=== PATIENT | female | born 1955 | race Caucasian/White ===

== ENCOUNTER 2021-12-29 07:22 | Outpatient (REF) | payer BC, SELFPAY ==
[2021-12-29 11:18] LABS: MANUAL DIFF FLAG NO
[2021-12-29 11:27] LABS: Basophils Absolute Auto 0.1 X10*3/uL (0.0-0.2); Basophils Percent Auto 0.9 % (0-2); Eosinophils Absolute Auto 0.4 X10*3/uL (0.0-0.4); Eosinophils Percent Auto 6.4 % (0-4); Hematocrit 44.1 % (37.0-47.0); Hemoglobin 14.7 g/dl (12.0-16.0); Imm Gran Abs Auto 0.01 X10*3/uL (0.00-0.03); Imm Gran Pct Auto 0.2 % (0.0-0.4); Lymphocytes Percent Auto 34.6 % (20-40); Mean Corpuscular HGB Conc 33.3 g/dl (31.0-35.0); Mean Corpuscular Hemoglobin 32.6 pg (27.0-33.0); Mean Corpuscular Volume 97.8 fL (80.0-98.0); Mean Platelet Volume 10.9 fL (9.4-12.3); Monocytes Absolute Auto 0.3 X10*3/uL (0.1-1.2); Monocytes Percent Auto 5.9 % (2-11); Platelet Count 254 X10*3/uL (160-400); Red Blood Count 4.51 X10*6/uL (4.20-5.50); Red Cell Distribution Width 12.7 % (11.0-16.0); White Blood Count 5.8 X10*3/uL (4.8-10.8)
[2021-12-29 11:45] LABS: Alanine Aminotransferase 14 U/L (0-31); Anion Gap 13 (12-20); Aspartate Amino Transferase 25 U/L (5-31); Blood Urea Nitrogen 15 mg/dL (9-16); Calcium 9.4 mg/dL (8.4-10.2); Carbon Dioxide 28 mmol/L (22-29); Chloride 105 mmol/L (96-108); Cholesterol 237 mg/dL; Estimated Glomerular Filt Rate > 60; Glucose Fasting 82 mg/dL (60-99); HDL Cholesterol 75 mg/dL; LDL Cholesterol Calculated 154 mg/dl; Potassium 4.9 mmol/L (3.3-5.1); Sodium 141 mmol/L (135-145); Triglycerides 42 mg/dL
== END 2021-12-29 07:23 | disposition home or self-care (01) ==
LOC: HO.HMGCLDS 07:22
PROVIDERS: Visit Provider Internal Medicine
DX: Z00.01 Encounter for general adult medical examination with abnormal findings (principal); E78.00 Pure hypercholesterolemia, unspecified; K21.9 Gastro-esophageal reflux disease without esophagitis; M85.80 Other specified disorders of bone density and structure, unspecified site; Z78.0 Asymptomatic menopausal state
CPT/HCPCS: 36415; 80048; 80061; 82306; 84450; 84460; 85025

== ENCOUNTER 2023-01-01 09:07 | Outpatient (REF) | payer BC, SELFPAY ==
[2023-01-01 12:29] LABS: Alanine Aminotransferase 11 U/L (0-31); Anion Gap 12 (12-20); Aspartate Amino Transferase 21 U/L (5-31); Blood Urea Nitrogen 11 mg/dL (9-16); Calcium 9.8 mg/dL (8.4-10.2); Carbon Dioxide 27 mmol/L (22-29); Chloride 105 mmol/L (96-108); Cholesterol 250 mg/dL; Estimated Glomerular Filt Rate > 60; Glucose Fasting 82 mg/dL (60-99); HDL Cholesterol 58 mg/dL; LDL Cholesterol Calculated 175 mg/dl; Sodium 140 mmol/L (135-145); Triglycerides 87 mg/dL
== END 2023-01-01 09:08 | disposition home or self-care (01) ==
LOC: HO.HMGCLDS 09:07
PROVIDERS: PCP Internal Medicine; Visit Provider Internal Medicine
DX: Z00.01 Encounter for general adult medical examination with abnormal findings (principal); E78.00 Pure hypercholesterolemia, unspecified; M85.80 Other specified disorders of bone density and structure, unspecified site; Z78.0 Asymptomatic menopausal state
CPT/HCPCS: 36415; 80048; 80061; 84450; 84460

== ENCOUNTER 2023-02-22 09:11 | Outpatient (AMB) | payer BC, SELFPAY ==
--- NOTE | 2023-02-22 09:16 | MHC.PC.OV ---
Vital Signs 02/22/23 09:22 Height 5 ft 2 in Weight 140 lb BMI 25.6 BP 120/70 Blood Pressure Location Rt brachial Position Sitting Pulse 74 Pulse Source Pulse Oximeter Pulse Oximetry (%) 98 Oxygen Delivery Method Room Air Intake Visit Reasons: pain On right upper thigh/hip Intake Note: Pt is here today c/o pain on Rt upper thigh and hip: No falls noted Allergies ibuprofen [From Advil] Allergy (Intermediate, Verified 02/22/23 09:42) Swelling Medication List - Last Reconciled 02/22/23 by Michelle Villalpando MD cholecalciferol (vitamin D3) 125 mcg PO DAILY omega 8-dzh-mkz-other om3-D3 2,200 mg-1,000 unit/5 mL mL PO omeprazole 20 mg PO DAILY valacyclovir 1,000 mg PO BID Tobacco use date assessed: 02/22/23 Fall risk assessment: No Falls in past year Last assessed Fall Risk: 02/22/23 Dental Screening Dental Screen Date: 02/22/23 Did you have a dental visit in the last 12 months?: Yes Did you have a dental problem in the last 6 months where you did not have access to dental care?: No Was dental information given to patient?: Patient has dentist HPI pain On right upper thigh/hip HPI Details 67-year-old lady here today complaining of pain and stiffness in her right hip going down posterior aspect of right thigh, present for the last several days. She has been doing a lot of gardening but has not had any injuries, no fall, no strenuous exertion. She sometimes would get pain on her right leg when lying on her right side when sleeping. Has not been taking anything for this. Denies any accompanying urinary or stool incontinence, no leg weakness numbness or tingling reported. She also has rash on her left ankle present now for at least a week. Patient initially was placing hydrocortisone which did not afford any improvement and now just started applying Neosporin which seems to be helping. Denies any itching over site peer [facility] Medical History (Updated 02/22/23 @ 09:54 by Michelle Villalpando MD) Acute right hip pain Chronic GERD COVID-19 vaccination refused Herpes zoster ophthalmicus Hypercholesterolemia Osteopenia after menopause Surgical History No pertinent past surgical history Family History Father Alzheimer's dementia Coronary artery disease Social History Housing: House Patient Tobacco Use Status: Never used Tobacco e-Cigarette/Vaping Use: Never Used service: No Current occupational status: employed Cognitive needs: No Hearing needs: No Vision needs: Yes Questionnaire Thrive Questionnaire Date Thrive assessed: 12/31/22 DENNIS-7 AMB Questionnaire DENNIS-7 Date DENNIS - 7 assessed: 12/31/22 Source: Developed by Drs. Bala Mosqueda, Lizett Giraldo, Madi Hickman and colleagues, with an educational hiwot from [employer] 2000. Review of Systems Const All systems reviewed & are unremarkable except as noted in HPI and below GI Denies abdominal pain, Denies change in bowel habits, Denies dyspepsia, Denies heartburn and Denies fecal incontinence Denies dysuria, Denies urinary incontinence and Denies vaginal discharge Musc Reports as per HPI Skin/Breast Reports as per HPI Physical exam (Primary Care) Vital Signs: Last Vital Signs Pulse 74 02/22/23 09:22 BP 120/70 02/22/23 09:22 Pulse Ox 98 02/22/23 09:22 Oxygen Delivery Method Room Air 02/22/23 09:22 BMI result Body Mass Index 25.6 Tobacco/Smoking Status: Tobacco use Status Tobacco use date assessed 02/22/23 02/22/23 09:19 Patient Tobacco Use Status Never used Tobacco 02/22/23 09:19 e-Cigarette/Vaping Use Never Used 02/22/23 09:19 Thrive Assessment: Date of Thrive Assessment Date Thrive assessed 12/31/22 02/22/23 09:19 Const Other: Alert oriented x3, no acute distress noted ambulatory no Orientation/consciousness: patient oriented x3 GI Palpation (GI): Soft to palpation, nontender, no guarding and no masses Back/Spine/Pelvis Other: No tenderness elicited on palpation over right hip joint, no gross bone deformity or joint swelling seen full range of motion of right hip joint Skin Other: Erythematous lesion with central clearing and Lacy borders on posterior ankle on left Neuro General: patient oriented x3, gait normal, tone normal, moves all extremities, Normal light touch and pain sensation, no focal motor deficits, CN's II-XI intact bilaterally and normal sensation to monofilament Extrem Right lower extremity: full ROM, no joint enlargement and hip/thigh Details: normal to inspection and normal ROM; no tenderness Assessment and Plan Assessment & Plan (1) Acute right hip pain: Code(s): M25.551 - Pain in right hip Plan: X-ray of right hip joint ordered, advised to try taking Tylenol arthritis 1 tablet twice a day as needed for pain, apply moist heat to affected area for 15 minutes twice a day as needed. Patient wanted referral to Orthopedics, ordered (2) Rash: Code(s): R21 - Rash and other nonspecific skin eruption Plan: Likely tinea corporis. Patient however states that it is improving with Neosporin, continue applying it twice a day for at least 7 days, if no improvement, to let me know Orders: Orders XR hip RT min 2V Today M25.551 - Pain in right hip Referrals Orthopedics Referral M25.551 - Pain in right hip Coding Level of Care Code Est Pt Level 3 (94911) Diagnoses Acute right hip pain M25.551 Rash R21
[2023-02-22 09:22] VITALS: BP 120/70; PULSE 74; O2SAT 98; BMI 25.6
== END 2023-02-22 10:32 | disposition home or self-care (01) ==
PROVIDERS: PCP Internal Medicine; Visit Provider Internal Medicine
DX: M25.551 Pain in right hip (principal); R21 Rash and other nonspecific skin eruption
CPT/HCPCS: 99213

== ENCOUNTER 2023-02-22 10:01 | Outpatient (REF) | payer MEDICARE, SELFPAY ==
--- NOTE | ~2023-02-22 | XR_ITS ---
EXAMINATION: XR HIP, RIGHT CLINICAL INFORMATION: Right hip pain COMPARISON: None available. TECHNIQUE: Two views of the right hip. FINDINGS: Dense oval focus measuring 1.2 cm projects over the right sacrum and it is unclear whether this is a bony versus soft tissue lesion. Dedicated imaging recommended for further evaluation. Mild degenerative changes right hip with joint space narrowing and hypertrophic change. Right hip joint alignment is preserved. XR/XR hip RT min 2V IMPRESSION: 1. Dense 1.2 cm focus projects over the right sacrum and it is unclear whether this is a bony versus soft tissue lesion. Dedicated imaging recommended for further evaluation. 2. Mild degenerative changes right hip. Additional imaging with CT scan or MRI should be considered for better visualization as these modalities are much more sensitive for detection of fracture or other underlying pathology.
== END 2023-02-22 10:02 | disposition home or self-care (01) ==
LOC: HO.HMGCX 10:01
PROVIDERS: PCP Internal Medicine; Visit Provider Internal Medicine
DX: M25.551 Pain in right hip (principal)
CPT/HCPCS: 73502

== ENCOUNTER 2023-03-11 10:45 | Outpatient (AMB) | payer MEDICARE, SELFPAY ==
[2023-03-11 10:55] VITALS: BMI 25.6
--- NOTE | 2023-03-11 10:55 | A.OFFVIS_ITS ---
Intake Vital Signs 03/11/23 10:55 Height 5 ft 2 in Weight 140 lb BMI 25.6 Intake Visit Reasons: [employer]-Right hip pain Intake Note: Farnaz 67 yr old female presents today for for a new patient visit for her right hip pain. States she was referred from her PCP Michelle Villalpando. States she is having right hip pain for the last year or more. 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 She has tried Tylenol and anti-inflammatory medicines which gave her minimal relief. The patient has done physical therapy for 12 weeks over the last 6 months which aggravated her pain. Patient has seen the radiology report from her right hip x-ray taken on 02/22/2023 which shows a ?dense oval focus measuring 1.2 cm p rojects over the right sacrum and it is unclear whether this is a bony versus soft tissue lesion. Dedicated imaging recommended for further evaluation. Allergies ibuprofen [From Advil] Allergy (Intermediate, Verified 03/11/23 10:58) Swelling Medication List - Last Reviewed 03/11/23 by PRISCA Amador cholecalciferol (vitamin D3) 125 mcg PO DAILY omega 9-qri-hmf-other om3-D3 2,200 mg-1,000 unit/5 mL mL PO omeprazole 20 mg PO DAILY valacyclovir 1,000 mg PO BID [facility] Medical History (Updated 03/11/23 @ 11:31 by Rivas Delgado MD) Acute right hip pain Chronic GERD COVID-19 vaccination refused Herpes zoster ophthalmicus Hypercholesterolemia Osteopenia after menopause Surgical History No pertinent past surgical history Family History Father Alzheimer's dementia Coronary artery disease Social History Housing: House Patient Tobacco Use Status: Never used Tobacco e-Cigarette/Vaping Use: Never Used service: No Current occupational status: employed Cognitive needs: No Hearing needs: No Vision needs: Yes Physical Exam Vital Signs: BMI result Body Mass Index 25.6 Const Other: Well-nourished well-developed very friendly female awake alert and oriented x3 in no acute distress Extrem Other: Bilateral lower extremity examination shows good capillary refill, no skin lesions noted, normal sensation light touch Right hip examination shows decreased range of motion when compared to her left hip, pain with range of motion, pain increased with forward flexion and internal rotation, mild tenderness over her bursa, no overlying skin lesions Results Reviewed Results Reviewed: X-ray report from the patient's right hip x-ray taken on 02/22/2023 shows mild degenerative changes as well as the previously mentioned ?dense oval focus? overlying the right sacrum Assessment & Plan Assessment & Plan (1) Right hip pain: Code(s): M25.551 - Pain in right hip Plan: Ms. Colon presents with right hip pain possibly due to an acetabular labral tear or avascular necrosis of her femoral head. Thus, I will send her for an MRI of her right hip for further evaluation. I will also include an MRI of her pelvis to help evaluate the abnormality seen on her plain x-rays. The patient will contact me following her MRI imaging studies to further discuss the findings and treatment options. I did give her a prescription for a Medrol Dosepak to help with her symptoms in the meantime. Feel free to call me at any time should questions regarding her orthopedic management arise. Thank you very much for asking me to see this very friendly patient. I spent 22 minutes in reviewing the patient's records and imaging studies, seeing the patient and documenting in the medical record. Orders: Orders MR hip RT wo con Today S73.199A - Other sprain of unspecified hip, initial encounter MR pelvis wo con Today Q79.9 - Congenital malformation of musculoskeletal system, unspecified Coding Level of Care Code New Pt Level 2 (94321) Diagnoses Right hip pain M25.551
== END 2023-03-11 11:27 | disposition home or self-care (01) ==
PROVIDERS: PCP Internal Medicine; Visit Provider Orthopaedic Surgery
DX: M25.551 Pain in right hip (principal)
CPT/HCPCS: 99202

== ENCOUNTER → 2023-03-11 10:45 | Outpatient (BNVA) | payer MEDICARE, SELFPAY | PROVIDERS: PCP Internal Medicine; Visit Provider Orthopaedic Surgery | DX: M25.551 Pain in right hip (principal) | CPT/HCPCS: 99202 ==

== ENCOUNTER 2023-07-09 09:01 | Outpatient (AMB) | payer MEDICARE, SELFPAY ==
[2023-07-09 09:02] VITALS: BP 120/74; PULSE 74; O2SAT 97; BMI 25.1
--- NOTE | 2023-07-09 09:02 | MHC.PC.OV ---
Vital Signs 07/09/23 09:02 Height 5 ft 2 in Weight 137 lb BMI 25.1 BP 120/74 Blood Pressure Location Rt brachial Position Sitting Pulse 74 Pulse Source Pulse Oximeter Pulse Oximetry (%) 97 Oxygen Delivery Method Room Air Intake Visit Reasons: Hemorrhoids Follow Up Intake Note: Pt is here today for hemorrhiods f/u and c/o cough and is requesting a CXR Allergies ibuprofen [From Advil] Allergy (Intermediate, Verified 07/09/23 10:07) Swelling Medication List - Last Reconciled 07/09/23 by Michelle Villalpando MD cholecalciferol (vitamin D3) 125 mcg PO DAILY famotidine-Ca carb-mag hydrox 10-800-165 mg (Pepcid Complete) 1 tab PO DAILY PRN hydrocortisone 2.5% (Anusol-HC) 1 appl NE BID-QID PRN loteprednol etabonate 0.5% 1 drp ophthalmic (eye) DAILY omega 9-dac-kgc-other om3-D3 2,200 mg-1,000 unit/5 mL mL PO valacyclovir 1,000 mg PO DAILY Tobacco use date assessed: 07/09/23 Fall risk assessment: No Falls in past year Last assessed Fall Risk: 07/09/23 Dental Screening Dental Screen Date: 07/09/23 Did you have a dental visit in the last 12 months?: Yes Did you have a dental problem in the last 6 months where you did not have access to dental care?: No Was dental information given to patient?: Patient has dentist HPI Hemorrhoids Follow Up HPI Details 68-year-old lady here today complaining of intermittent episode of burning pain on defecation, which she thinks is likely due to her hemorrhoids. Has an appointment with Dr. West on 07/21/2023 for preprocedural consult regarding colonoscopy, gets it every 5 years due to positive family history of polyps, but no family history of colon cancer. Hemorrhoids has decreased in size, no further bleeding or itching since she started using a and Anusol HC cream. No episodes of constipation. Complains of recurrent dry cough accompanied by chest congestion, and postnasal drainage, present now for the last several days. Denies any accompanying fever, no shortness of breath reported. Has tested negative for COVID already [facility] Medical History Hemorrhoids, complicated Acute right hip pain COVID-19 vaccination refused Hypercholesterolemia Osteopenia after menopause Chronic GERD Herpes zoster ophthalmicus Surgical History No pertinent past surgical history Family History Father Alzheimer's dementia Coronary artery disease Social History Housing: House Patient Tobacco Use Status: Never used Tobacco e-Cigarette/Vaping Use: Never Used service: No Current occupational status: employed Cognitive needs: No Hearing needs: No Vision needs: Yes Questionnaire Thrive Questionnaire Date Thrive assessed: 12/31/22 DENNIS-7 AMB Questionnaire DENNIS-7 Date DENNIS - 7 assessed: 12/31/22 Source: Developed by Drs. Bala Mosqueda, Lizett Giraldo, Madi Hickman and colleagues, with an educational hwiot from [employer]. Review of Systems Const Reports no additional complaints and Denies headache(s) ENT Denies headache(s), Denies hoarseness and Denies sore throat Card Reports no additional complaints and Denies dyspnea on exertion Resp Denies excessive phlegm production, Denies pain on inspiration, Denies pain with cough and Denies dyspnea on exertion GI Reports no additional complaints Reports no additional complaints Musc Reports no additional complaints Neuro Denies headache(s) Endo Reports no additional complaints Aller/Immun Reports no additional complaints Physical exam (Primary Care) Vital Signs: Last Vital Signs Pulse 74 07/09/23 09:02 BP 120/74 07/09/23 09:02 Pulse Ox 97 07/09/23 09:02 Oxygen Delivery Method Room Air 07/09/23 09:02 BMI result Body Mass Index 25.1 Tobacco/Smoking Status: Tobacco use Status Tobacco use date assessed 07/09/23 07/09/23 09:04 Patient Tobacco Use Status Never used Tobacco 07/09/23 09:03 e-Cigarette/Vaping Use Never Used 07/09/23 09:03 Thrive Assessment: Date of Thrive Assessment Date Thrive assessed 12/31/22 07/09/23 09:03 Const Other: Alert oriented x3, no acute distress noted ambulatory normal gait Orientation/consciousness: patient oriented x3 HENMT Ears: external ears normal, TM's normal bilaterally and EAC's normal General nose exam: Normal external nose present and No nasal discharge present Face and sinus: Yes face symmetric Mouth: Normal oral and palatal mucosa present and moist mucous membranes Neck Neck: Yes full ROM, Yes no lymphadenopathy and Yes supple Resp Auscultation: clear to auscultation bilaterally Cardio Other: S1-S2 present regular rate and rhythm GI Palpation (GI): Soft to palpation, nontender, no guarding and no masses Rectal Exam - Female: visual inspection normal and External hemorrhoid(s) present (Nonthrombosed external hemorrhoid, no active drainage or bleed) Neuro General: patient oriented x3, gait normal, tone normal, moves all extremities and Normal light touch and pain sensation Extrem General: Yes full ROM, Yes no joint enlargement, Yes no clubbing, cyanosis or edema and Yes normal gait Assessment and Plan Assessment & Plan (1) Chronic cough: Code(s): R05.3 - Chronic cough Plan: Chest x-ray ordered, if negative may try taking Zyrtec or cetirizine kllv-wlt-sscrpir 10 mg 1 tablet at bedtime, to control episodes of nasal congestion and postnasal drainage. (2) Chronic GERD: Code(s): K21.9 - Gastro-esophageal reflux disease without esophagitis Plan: Prescription sent for famotidine 40 mg per tablet to take 1 tab once a day an hour before eating , either morning or night, advised to avoid triggers for heartburn such as coffee, chocolates, spicy, greasy foods avoid lying down right away after eating Orders: Orders XR chest 2V 07/09/23 R05.3 - Chronic cough Medications: New famotidine 40 mg PO DAILY 90 tabs 1RF Coding Level of Care Code Est Pt Level 3 (14878) Diagnoses Chronic cough R05.3 Chronic GERD K21.9
== END 2023-07-09 10:51 | disposition home or self-care (01) ==
PROVIDERS: PCP Internal Medicine; Visit Provider Internal Medicine
DX: R05.3 Chronic cough (principal); K21.9 Gastro-esophageal reflux disease without esophagitis
CPT/HCPCS: 99213

== ENCOUNTER 2023-07-09 10:21 | Outpatient (REF) | payer MEDICARE, SELFPAY ==
--- NOTE | ~2023-07-09 | XR_ITS ---
EXAMINATION: XR CHEST CLINICAL INFORMATION: Chronic cough COMPARISON: None available. TECHNIQUE: 2 views of the chest were obtained. FINDINGS: Cardiac and mediastinal silhouette is within normal limits. Lungs are symmetric expanded. There is bronchial wall thickening and peribronchial hazy opacities in the right mid/lower lung. Possible mild changes in the left lower lung retrocardiac region as well. No dense consolidation left lung. No effusion, pulmonary edema. No pneumothorax. XR/XR chest 2V IMPRESSION: Bronchial wall thickening can be seen with a small airway process such as asthma or atypical/viral infections.
== END 2023-07-09 10:22 | disposition home or self-care (01) ==
LOC: HO.HMGCX 10:21
PROVIDERS: PCP Internal Medicine; Visit Provider Internal Medicine
DX: R05.3 Chronic cough (principal)
CPT/HCPCS: 71046

== ENCOUNTER 2024-01-05 10:45 | Outpatient (AMB) | payer BC, SELFPAY ==
--- NOTE | 2024-01-05 11:29 | A.OFFPC_ITS ---
Vital Signs 01/05/24 11:31 Height 5 ft 2 in Weight 140 lb BMI 25.6 BP 136/84 Blood Pressure Location Lt brachial Position Sitting Pulse 59 Pulse Source Pulse Oximeter Pulse Oximetry (%) 98 Oxygen Delivery Method Room Air Intake Visit Reasons: PE Intake Note: Patient here for physical exam. Last mammogram 10/05/23, bone density scan 07/31/21, colonoscopy 11/15/23 Allergies ibuprofen [From Advil] Allergy (Intermediate, Verified 01/05/24 11:47) Swelling Medication List - Last Reconciled 01/05/24 by Michelle Villalpando MD cholecalciferol (vitamin D3) 125 mcg PO DAILY famotidine 40 mg PO DAILY famotidine-Ca carb-mag hydrox 10-800-165 mg (Pepcid Complete) 1 tab PO DAILY PRN hydrocortisone 2.5% (Anusol-HC) 1 appl [place] BID-QID PRN loteprednol etabonate 0.5% 1 drp ophthalmic (eye) DAILY omega 9-jcx-nuj-other om3-D3 2,200 mg-1,000 unit/5 mL mL PO valacyclovir 1,000 mg PO DAILY Tobacco use date assessed: 01/05/24 Fall risk assessment: No Falls in past year Last assessed Fall Risk: 01/05/24 Dental Screening Dental Screen Date: 01/05/24 Did you have a dental visit in the last 12 months?: Yes Did you have a dental problem in the last 6 months where you did not have access to dental care?: No Was dental information given to patient?: Patient has dentist HPI PE HPI Details 68-year-old lady here today for her phys ical exam. She has glaucoma, followed by Dr. Mirza. She is up-to-date with her screening mammogram, last done 10/05/23, her bone density scan was last done 07/31/[address] Renae which showed presence of osteopenia, and is up-to-date with her screen colonoscopy which was done 11/25/[address] West, which showed presence of diverticulosis. 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 [facility] Medical History (Updated 01/05/24 @ 12:05 by Michelle Villalpando MD) Hemorrhoids, complicated Acute right hip pain COVID-19 vaccination refused Hypercholesterolemia Osteopenia after menopause Chronic GERD Herpes zoster ophthalmicus Surgical History No pertinent past surgical history Family History Father Alzheimer's dementia Coronary artery disease Social History Housing: House Patient Tobacco Use Status: Never used Tobacco e-Cigarette/Vaping Use: Never Used service: No Current occupational status: employed Cognitive needs: No Hearing needs: No Vision needs: Yes Female Reproductive History Menstrual Date of Mammogram: 10/05/23 Date of last Bone Density Screenin07/31/21 Questionnaire PHQ-9 Over the last 2 weeks, how often have you been bothered by any of the following problems? 1. Little interest or pleasure in doing things: not at all 2. Feeling down, depressed, or hopeless: not at all 3. Trouble falling or staying asleep, or sleeping too much: not at all 4. Feeling tired or having little energy: not at all 5. Poor appetite or overeating: not at all 6. Feeling bad about yourself - or that you are a failure or have let yourself or your family down: not at all 7. Trouble concentrating on things, such as reading the newspaper or watching television: not at all 8. Moving or speaking so slowly that other people could have noticed. Or the opposite - being so fidgety or restless that you have been moving around a lot more than usual: not at all 9. Thoughts that you would be better off or of hurting yourself in some way: not at all Total score: 0 Depression Screening Interpretation: Negative Depression Screening Done: Yes 77170 - PHQ-9 Billing: Yes Source: Developed by Drs. Bala Mosqueda, Lizett Giraldo, Madi Hickman and colleagues, with an educational hiwot from [employer]. Thrive Questionnaire Date Thrive assessed: 01/05/24 I am a: Patient What is your living situation today?: I have a steady place to live Within the past 12 months, did the food you bought not last and you didn't have the money to get more?: Never true Within the past 12 months, did you worry whether your food would run out before you got money to buy more?: Never true Do you have trouble paying for medicines?: No Do you have trouble getting transportation to medical appointments?: No Do you have trouble paying your heating and electricity bill?: No Do you have trouble taking care of your child, family member or friend?: No Do you have trouble with day-to-day activities such as bathing, preparing meals, shopping, managing finances, etc.?: No Are you currently unemployed and looking for a job?: No Are you interested in more education?: No THRIVE Score: 0 AUDIT C Alcohol Use Questionnaire (AUDIT-C) 1. How often do you have a drink containing alcohol?: Monthly or less 2. How many drinks containing alcohol do you have on a typical day when you are drinking?: 1 or 2 3. How often do you have six or more drinks on one occasion?: Never Total Score: 1 Score Reviewed/Action Taken: No DENNIS-7 AMB Questionnaire DENNIS-7 Date DENNIS - 7 assessed: 01/05/24 Feeling nervous, anxious, or on edge: 0 = Not at all Not being able to stop or control worryin = Not at all Worrying too much about different things: 0 = Not at all Trouble relaxin = Not at all Being so restless that it is hard to sit still: 0 = Not at all Becoming easily annoyed or irritable: 0 = Not at all Feeling afraid as if something awful might happen: 0 = Not at all Total DENNIS-7 score (0-4 normal; 5-9 mild; 10-14 moderate; 15-21 severe): 0 Source: Developed by Drs. Bala Mosqueda, Lizett Giraldo, Madi Hickman and colleagues, with an educational hiwot from [employer]. DENNIS-7 Assessment Billing DENNIS-7 Assessment Tool: DENNIS-7 Assessment 58907 Review of Systems Const Reports no additional complaints Eyes Details: ff'd by Dr Mirza Reports no additional complaints ENT Denies hoarseness and Denies sore throat Card Denies chest pain, Denies edema, Denies irregular heart rhythm, Denies lightheadedness and Denies dyspnea on exertion Resp Denies cough and Denies dyspnea on exertion GI Reports no additional complaints Reports no additional complaints Musc Reports no additional complaints Skin/Breast Denies breast swelling, Denies breast pain, Denies breast mass and Denies rash Neuro Reports no additional complaints Psych Reports no additional complaints Endo Reports no additional complaints Jak/Lymph Reports no additional complaints Aller/Immun Reports no additional complaints Physical exam (Primary Care) Vital Signs: Last Vital Signs Pulse 59 01/05/24 11:31 BP 136/84 01/05/24 11:31 Pulse Ox 98 01/05/24 11:31 Oxygen Delivery Method Room Air 01/05/24 11:31 BMI result Body Mass Index 25.6 Tobacco/Smoking Status: Tobacco use Status Tobacco use date assessed 01/05/24 01/05/24 11:34 Patient Tobacco Use Status Never used Tobacco 01/05/24 11:31 e-Cigarette/Vaping Use Never Used 01/05/24 11:31 Depression Screening Interpretation: Negative Thrive Assessment: Date of Thrive Assessment Date Thrive assessed 12/31/22 01/05/24 11:31 Const Other: Alert oriented x3, no acute distress noted ambulatory normal gait Orientation/consciousness: patient oriented x3 HENMT Ears: external ears normal, TM's normal bilaterally and EAC's normal General nose exam: Normal external nose present and No nasal discharge present Face and sinus: Yes face symmetric Mouth: Normal oral and palatal mucosa present and moist mucous membranes Neck Neck: Yes full ROM, Yes no lymphadenopathy and Yes supple Chest Breast/axilla palpation: normal palpation of the breasts Resp Auscultation: clear to auscultation bilaterally Cardio Other: S1-S2 present regular rate and rhythm GI Palpation (GI): Soft to palpation, nontender, no guarding and no masses General: Yes no CVA tenderness Back/Spine/Pelvis Back: no CVA tenderness and No back tenderness Skin General skin exam: no rashes or lesions noted Neuro General: patient oriented x3, gait normal, tone normal, moves all extremities and Normal light touch and pain sensation Extrem General: Yes full ROM, Yes no joint enlargement, Yes no clubbing, cyanosis or edema and Yes normal gait Psych Appearance: grossly normal and well kempt Mental Status: mental status grossly normal Speech and movement: Normal speech and movement present Affect: normal affect Thought process: Normal thought process present Assessment and Plan Assessment & Plan (1) Annual visit for general adult medical examination with abnormal findings: Code(s): Z00.01 - Encounter for general adult medical examination with abnormal findings Plan: Will check appropriate labs. Continue regular dental visit every 6 months and currently followed by Dr Mirza for her regular eye exam Take adequate calcium in diet and vitamin-D 3 at 2000 IU per cap once a day, in addition to weight- bearing exercises to help maintain good muscle tone and weight control. Instructed to do self-breast exam, and continue with yearly mammogram. Advised that she is due for her repeat bone density scan. Up-to-date with her screening colonoscopy done earlier this year by Dr. West, repeat due again in 2028 due to positive family history for colon cancer. Received COVID vaccines in the past does not want to get booster nor does she want to get any flu shot, up-to-date with her shingles vaccination, had Prevnar 13 in the past but does not want to get Prevnar 20 vaccination at present time. Up-to-date with her tetanus diphtheria booster (2) Hypercholesterolemia: Code(s): E78.00 - Pure hypercholesterolemia, unspecified Plan: Fasting lipid panel ordered, reinforced importance of following low-cholesterol diet, getting regular exercise at least 30 minutes of cardio exercise 3 to 4 times a week. (3) Osteopenia after menopause: Code(s): M85.80 - Other specified disorders of bone density and structure, unspecified site; Z78.0 - Asymptomatic menopausal state Plan: Encouraged to do regular weight-bearing exercise, continue taking adequate calcium from dietary sources and continue with vitamin-D [address]. [address] Renae orders her bone density scan, due for recheck. (4) Chronic GERD: Code(s): K21.9 - Gastro-esophageal reflux disease without esophagitis Plan: Takes famotidin 40 mg daily, avoidance of heartburn triggers important (5) Advanced directives, counseling/discussion: Code(s): Z71.89 - Other specified counseling Plan: Initiated the conversation about Advanced Directives. Advanced Directives help patients prepare for current and future decisions about their medical treatment and place of care. Discussed with patient that it is a process where a patients current condition and prognosis are reviewed, their wishes for information regarding their illness are elicited, and likely medical dilemmas are presented and options discussed. MOLST form already completed 2 years ago, healthcare proxy done today. These forms can be amended as needed, reviewed yearly and make changes as needed Orders: Orders Alanine Aminotransferase 01/10/24 M85.80 - Other specified disorders of bone density and structure, unspecified site, Z78.0 - Asymptomatic menopausal state, E78.00 - Pure hypercholesterolemia, unspecified, Z13.1 - Encounter for screening for diabetes mellitus Glucose Fasting 01/10/24 M85.80 - Other specified disorders of bone density and structure, unspecified site, Z78.0 - Asymptomatic menopausal state, E78.00 - Pure hypercholesterolemia, unspecified, Z13.1 - Encounter for screening for diabetes mellitus Lipid Panel 01/10/24 M85.80 - Other specified disorders of bone density and st ructure, unspecified site, Z78.0 - Asymptomatic menopausal state, E78.00 - Pure hypercholesterolemia, unspecified, Z13.1 - Encounter for screening for diabetes mellitus Aspartate Amino Transferase 01/10/24 M85.80 - Other specified disorders of bone density and structure, unspecified site, Z78.0 - Asymptomatic menopausal state, E78.00 - Pure hypercholesterolemia, unspecified, Z13.1 - Encounter for screening for diabetes mellitus Vitamin D 25-OH Total 01/10/24 M85.80 - Other specified disorders of bone density and structure, unspecified site, Z78.0 - Asymptomatic menopausal state, E78.00 - Pure hypercholesterolemia, unspecified, Z13.1 - Encounter for screening for diabetes mellitus Review Patient declined Pneumococcal Vaccine: 01/05/24 Coding Level of Care Code Est Pt Prev Care >65y(63955) Diagnoses Annual visit for general adult medical examination with abnormal findings Z00.01 Hypercholesterolemia E78.00 Osteopenia after menopause M85.80; Z78.0 Chronic GERD K21.9 Advanced directives, counseling/discussion Z71.89 Additional Codes DENNIS-7 Assessment Billing - DENNIS-7 Assessment Tool: DENNIS-7 Assessment 36214 ([id number])
[2024-01-05 11:31] VITALS: BP 136/84; PULSE 59; O2SAT 98; BMI 25.6
== END 2024-01-05 12:18 | disposition home or self-care (01) ==
PROVIDERS: PCP Internal Medicine; Visit Provider Internal Medicine
DX: Z00.00 Encounter for general adult medical examination without abnormal findings (principal); E78.00 Pure hypercholesterolemia, unspecified; M85.80 Other specified disorders of bone density and structure, unspecified site; Z78.0 Asymptomatic menopausal state; K21.9 Gastro-esophageal reflux disease without esophagitis
CPT/HCPCS: 99397

== ENCOUNTER 2024-01-10 07:55 | Outpatient (REF) | payer MEDICARE, SELFPAY ==
[2024-01-10 12:41] LABS: Alanine Aminotransferase 13 U/L (0-31); Aspartate Amino Transferase 24 U/L (5-31); Cholesterol 226 mg/dL (<200); Glucose Fasting 80 mg/dL (60-99); HDL Cholesterol 76 mg/dL (>40); LDL Cholesterol Calculated 138 mg/dL (<100); Triglycerides 62 mg/dL (<150)
[2024-01-10 12:47] LABS: Vitamin D 25-OH Total 50.8 ng/mL (>30)
== END 2024-01-10 07:56 | disposition home or self-care (01) ==
LOC: HO.HMGCLDS 07:55
PROVIDERS: PCP Internal Medicine; Visit Provider Internal Medicine
DX: M85.80 Other specified disorders of bone density and structure, unspecified site (principal); Z78.0 Asymptomatic menopausal state; E78.00 Pure hypercholesterolemia, unspecified; Z13.1 Encounter for screening for diabetes mellitus
CPT/HCPCS: 36415; 80061; 82306; 82947; 84450; 84460

== ENCOUNTER 2025-02-12 10:42 | Outpatient (AMB) | payer MEDICARE, SELFPAY ==
--- NOTE | 2025-02-12 10:57 | A.OFFPC_ITS ---
Vital Signs 02/12/25 11:17 Height 5 ft 2 in Weight 129 lb BMI 23.6 BP 114/70 Blood Pressure Location Rt brachial Position Sitting Respiration 15 Pulse 58 Pulse Source Pulse Oximeter Temp 98.2 F Pulse Oximetry (%) 98 Oxygen Delivery Method Room Air Intake Visit Reasons: PE Intake Note: Pt is here today for her PE: Last mammogram 11/16/24, bone density scan 07/31/21, colonoscopy 11/25/23 Allergies ibuprofen (From Advil) Allergy (Intermediate, Verified 02/18/25 13:47) Swelling Medication List - Last Reconciled 02/12/25 by Michelle Villalpando MD cholecalciferol (vitamin D3) 125 mcg PO DAILY famotidine-Ca carb-mag hydrox 10-800-165 mg (Pepcid Complete) 1 tab PO DAILY PRN loteprednol etabonate 0.5% 1 drp ophthalmic (eye) DAILY omega 1-syz-ubh-other om3-D3 2,200 mg-1,000 unit/5 mL mL PO valacyclovir 1,000 mg PO DAILY Tobacco use date assessed: 02/12/25 Fall risk assessment: No Falls in past year Last assessed Fall Risk: 02/12/25 Dental Screening Dental Screen Date: 02/12/25 Did you have a dental visit in the last 12 months?: Yes Did you have a dental problem in the last 6 months where you did not have access to dental care?: Yes Was dental information given to patient?: Patient has dentist HPI PE HPI Details - The patient is a 69-year-old female pr esenting for a routine physical examination and management of chronic conditions. - has hyperlipidemia with elevated LDL c holesterol on last check, currently not on stat or following any diet - Hypertension: Blood pressure has impro robert from 136/84 mmHg to 114/70 mmHg, attributed to weight loss. - Osteopenia: Bone thinning noted in one hip, with no fractures reported. 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 No external skin lesions noted, but exp erienced blurry vision initially. - Allergic reaction to Ibuprofen: Patien t experienced lip swelling years ago and avoids ibuprofen, using Tylenol for pain management instead. - Cataracts: Developing cataracts noted in one eye, not yet requiring surgical intervention. - Heartburn: Managed with Famotidine as needed, depending on dietary intake. - Preventative care: Pneumonia vaccinati on discussed, with patient having received the Prevnar 13. Mammogram and bone density screenings are scheduled for after November 16. -had her screening colonoscopy done in with Dr. West which showed prese nce of diverticulosis and internal hemorrhoids, nonbleeding, but due to positive family history in first-degree relative with colon cancer, repeat colonoscopy due again in 2028. She also had an upper endoscopy done at the same time which showed presence of a large hiatal hernia and GERD [facility] Medical History (Updated 02/18/25 @ 13:52 by Michelle Villalpando MD) Large hiatal hernia Hemorrhoids, complicated Acute right hip pain COVID-19 vaccination refused Hypercholesterolemia Osteopenia after menopause Chronic GERD Herpes zoster ophthalmicus Surgical History No pertinent past surgical history Family History Father Alzheimer's dementia Coronary artery disease Social History Housing: House Patient Tobacco Use Status: Never used Tobacco e-Cigarette/Vaping Use: Never Used service: No Current occupational status: employed Cognitive needs: No Hearing needs: No Vision needs: Yes Questionnaire PHQ-9 Over the last 2 weeks, how often have you been bothered by any of the following problems? 1. Little interest or pleasure in doing things: not at all 2. Feeling down, depressed, or hopeless: not at all 3. Trouble falling or staying asleep, or sleeping too much: not at all 4. Feeling tired or having little energy: not at all 5. Poor appetite or overeating: not at all 6. Feeling bad about yourself - or that you are a failure or have let yourself or your family down: not at all 7. Trouble concentrating on things, such as reading the newspaper or watching television: not at all 8. Moving or speaking so slowly that other people could have noticed. Or the opposite - being so fidgety or restless that you have been moving around a lot more than usual: not at all 9. Thoughts that you would be better off or of hurting yourself in some way: not at all Total score: 0 Depression Screening Interpretation: Negative Depression Screening Done: Yes 36428 - PHQ-9 Billing: Yes Source: Developed by Drs. Bala Mosqueda, Lizett Giraldo, Madi Hickman and colleagues, with an educational hiwot from [employer]. Thrive Questionnaire Date Thrive assessed: 02/07/25 I am a: Patient What is your living situation today?: I have a steady place to live Within the past 12 months, did the food you bought not last and you didn't have the money to get more?: Never true Within the past 12 months, did you worry whether your food would run out before you got money to buy more?: Never true Do you have trouble paying for medicines?: No Do you have trouble getting transportation to medical appointments?: No Do you have trouble paying your heating and electricity bill?: No Do you have trouble taking care of your child, family member or friend?: No Do you have trouble with day-to-day activities such as bathing, preparing meals, shopping, managing finances, etc.?: No Are you currently unemployed and looking for a job?: No Are you interested in more education?: No Please select the resources that you would like help with: None Currently or been in a relationship where the following occur: No concerns reported THRIVE Score: 0 AUDIT C Alcohol Use Questionnaire (AUDIT-C) 1. How often do you have a drink containing alcohol?: 2-3 times a week 2. How many drinks containing alcohol do you have on a typical day when you are drinking?: 1 or 2 3. How often do you have six or more drinks on one occasion?: Never Total Score: 3 DENNIS-7 AMB Questionnaire DENNIS-7 Date DENNIS - 7 assessed: 12/31/22 Feeling nervous, anxious, or on edge: 0 = Not at all Not being able to stop or control worryin = Not at all Worrying too much about different things: 0 = Not at all Trouble relaxin = Not at all Being so restless that it is hard to sit still: 0 = Not at all Becoming easily annoyed or irritable: 0 = Not at all Feeling afraid as if something awful might happen: 0 = Not at all Total DENNIS-7 score (0-4 normal; 5-9 mild; 10-14 moderate; 15-21 severe): 0 Source: Developed by Drs. Bala Mosqueda, Lizett Giraldo, Madi Hickman and colleagues, with an educational hiwot from [employer]. Review of Systems Const Reports no additional complaints Eyes Details: sees Dr Mirza Reports no additional complaints ENT Reports no additional complaints Card Denies chest pain, Denies edema, Denies irregular heart rhythm, Denies lightheadedness and Denies dyspnea on exertion Resp Denies cough and Denies dyspnea on exertion GI Reports no additional complaints Reports no additional complaints Musc Reports no additional complaints Skin/Breast Denies breast swelling, Denies breast pain, Denies breast mass and Denies rash Neuro Reports no additional complaints Psych Reports no additional complaints Endo Reports no additional complaints Jak/Lymph Reports no additional complaints Aller/Immun Reports no additional complaints Physical exam (Primary Care) Vital Signs: Last Vital Signs Temp 98.2 F 02/12/25 11:17 Pulse 58 02/12/25 11:17 Resp 15 02/12/25 11:17 BP 114/70 02/12/25 11:17 Pulse Ox 98 02/12/25 11:17 Oxygen Delivery Method Room Air 02/12/25 11:17 BMI result Body Mass Index 23.6 Tobacco/Smoking Status: Tobacco use Status Tobacco use date assessed 02/12/25 02/12/25 11:18 Patient Tobacco Use Status Never used Tobacco 02/12/25 10:58 e-Cigarette/Vaping Use Never Used 02/12/25 10:58 PHQ-9: PHQ-9 Score PHQ-9: Total score 0 02/18/25 13:55 Depression Screening Interpretation: Negative Thrive Assessment: Date of Thrive Assessment Date Thrive assessed 02/07/25 02/12/25 10:58 Currently or been in a relationship where the following occur: No concerns reported Const Other: Alert oriented x3, no acute distress noted ambulatory normal gait Orientation/consciousness: patient oriented x3 HENMT Ears: external ears normal, TM's normal bilaterally and EAC's normal General nose exam: Normal external nose present and No nasal discharge present Face and sinus: Yes face symmetric Mouth: Normal oral and palatal mucosa present and moist mucous membranes Eyes General: appearance normal, both eyes and all related structures Neck Neck: Yes full ROM, Yes no lymphadenopathy and Yes supple Chest Breast/axilla palpation: normal palpation of the breasts Resp Auscultation: clear to auscultation bilaterally Cardio Other: S1-S2 present regular rate and rhythm GI Palpation (GI): Soft to palpation, nontender, no guarding and no masses General: Yes no CVA tenderness Back/Spine/Pelvis Back: no CVA tenderness and No back tenderness Skin General skin exam: no rashes or lesions noted Neuro General: patient oriented x3, gait normal, tone normal, moves all extremities and Normal light touch and pain sensation Extrem General: Yes full ROM, Yes no joint enlargement and Yes normal gait Psych Appearance: grossly normal and well kempt Mental Status: mental status grossly normal Speech and movement: Normal speech and movement present Affect: normal affect Coding Level of Care Code Est Pt Prev Care >65y(49316) Diagnoses Annual visit for general adult medical examination with abnormal findings Z00.01 Osteopenia after menopause M85.80; Z78.0 Chronic GERD K21.9 Large hiatal hernia K44.9 Hypercholesterolemia E78.00 Additional Codes PHQ-9 - 13687 - PHQ-9 Billing: Yes ([id number]) Assessment & Plan Assessment & Plan (1) Annual visit for general adult medical examination with abnormal findings: Code(s): Z00.01 - Encounter for general adult medical examination with abnormal findings (2) Osteopenia after menopause: Code(s): M85.80 - Other specified disorders of bone density and structure, unspecified site; Z78.0 - Asymptomatic menopausal state Category: Medical (3) Chronic GERD: Code(s): K21.9 - Gastro-esophageal reflux disease without esophagitis Category: Medical (4) Large hiatal hernia: Comment: seen on upper endoscopy Code(s): K44.9 - Diaphragmatic hernia without obstruction or gangrene Category: Medical (5) Hypercholesterolemia: Code(s): E78.00 - Pure hypercholesterolemia, unspecified Category: Medical Plan Repeat fasting lipid panel, basic metabolic panel ordered. Reinforced importance of following a low-cholesterol diet and getting regular exercise at least 15 minutes of moderate intensity exercise daily or 150 minutes per week Her blood pressure is currently well-controlled, with recent weight loss, and will continue to be monitored. Has osteopenia, bone density screenings are scheduled, and she is advised to maintain her current weight to reduce stress on her joints. history of Herpes Zoster Ophthalmicus, on Valacyclovir, and she should continue this regimen. She should avoid ibuprofen due to her previous allergic reaction and continue using Tylenol for pain management. Cataracts in one eye are being monitored, with no immediate need for surgical intervention. Heartburn is managed with Famotidine as needed Preventative care measures include updating her pneumonia vaccination and scheduling mammogram and bone density screenings after November 16, 2025. She is encouraged to continue her current exercise routine, which has contributed to her weight loss and overall health improvement. screening colonoscopy done in [address] West which showed presence of diverticulosis and internal hemorrhoids, nonbleeding, but due to positive family history in first-degree relative with colon cancer, repeat colonoscopy due again in 2028 Patient was informed and verbally consented to the use of an ambient scribe for clinic note documentation during this visit. Orders: Orders MM tomosynthesis screening BI 11/19/25 M85.80 - Other specified disorders of bone density and structure, unspecified site, Z12.31 - Encounter for screening mammogram for malignant neoplasm of breast, Z78.0 - Asymptomatic menopausal state XR DEXA axial skeleton 11/19/25 M85.80 - Other specified disorders of bone density and structure, unspecified site, Z12.31 - Encounter for screening mammogram for malignant neoplasm of breast, Z78.0 - Asymptomatic menopausal state
[2025-02-12 11:17] VITALS: BP 114/70; PULSE 58; RESP 15; TEMP 36.8; O2SAT 98; BMI 23.6
== END 2025-02-12 12:12 | disposition home or self-care (01) ==
LOC: HO.HMCC 10:43
PROVIDERS: PCP Internal Medicine; Visit Provider Internal Medicine
DX: Z00.01 Encounter for general adult medical examination with abnormal findings (principal); M85.80 Other specified disorders of bone density and structure, unspecified site; Z78.0 Asymptomatic menopausal state; K21.9 Gastro-esophageal reflux disease without esophagitis; K44.9 Diaphragmatic hernia without obstruction or gangrene; E78.00 Pure hypercholesterolemia, unspecified

== ENCOUNTER → 2025-02-12 10:42 | Outpatient (BNVA) | payer MEDICARE, SELFPAY | PROVIDERS: PCP Internal Medicine; Visit Provider Internal Medicine | DX: Z00.01 Encounter for general adult medical examination with abnormal findings (principal); M85.80 Other specified disorders of bone density and structure, unspecified site; K21.9 Gastro-esophageal reflux disease without esophagitis; K44.9 Diaphragmatic hernia without obstruction or gangrene; E78.00 Pure hypercholesterolemia, unspecified; Z78.0 Asymptomatic menopausal state; Z13.31 Encounter for screening for depression | CPT/HCPCS: 96127; 99397 ==

== ENCOUNTER 2025-02-17 07:25 | Outpatient (REF) | payer MEDICARE, SELFPAY ==
[2025-02-17 12:07] LABS: Hematocrit 42.0 % (37.0-47.0); Hemoglobin 14.1 g/dl (12.0-16.0)
[2025-02-17 12:46] LABS: Alanine Aminotransferase 16 U/L (0-31); Anion Gap 12 (12-20); Aspartate Amino Transferase 32 U/L (5-31); Blood Urea Nitrogen 13 mg/dL (9-16); Calcium 9.4 mg/dL (8.4-10.2); Carbon Dioxide 28 mmol/L (22-29); Chloride 106 mmol/L (96-108); Cholesterol 217 mg/dL (<200); Estimated Glomerular Filt Rate > 60; HDL Cholesterol 60 mg/dL (>40); Potassium 4.2 mmol/L (3.3-5.1); Sodium 142 mmol/L (135-145); Triglycerides 104 mg/dL (<150)
== END 2025-02-17 07:26 | disposition home or self-care (01) ==
LOC: HO.HMGCLDS 07:25
PROVIDERS: PCP Internal Medicine; Visit Provider Internal Medicine
DX: K64.8 Other hemorrhoids (principal); K21.9 Gastro-esophageal reflux disease without esophagitis; Z78.0 Asymptomatic menopausal state; E78.00 Pure hypercholesterolemia, unspecified; M85.80 Other specified disorders of bone density and structure, unspecified site
CPT/HCPCS: 36415; 80048; 80061; 82306; 84450; 84460; 85014; 85018